=== PATIENT | male | born 1980 | race Caucasian/White ===

== ENCOUNTER 2017-04-20 07:37 | Emergency (ER) | payer OTHER | END 2017-04-20 09:38 | disposition home or self-care (01) | LOC: ERS 07:37 | DX: H53.8 Other visual disturbances (principal) | CPT/HCPCS: 99283 ==

== ENCOUNTER 2017-05-01 14:32 | Outpatient (CLI) | payer OTHER ==
--- NOTE | 2017-05-01 15:56 | MRI ---
MAGNETIC RESONANCE ANGIOGRAM MRA OF HEAD NONCONTRAST: DATE: 05/01/17. HISTORY: A 36-year-old male with sudden onset of dilated right pupil and headaches. H57.02, unequal pupils (a nisocoria). Rule out PCOM aneurysm. TECHNIQUE: A 3D [id number] MRA performed in multiple axial slabs through the [place]. Source image s and 3D MIP reconstructions evaluated. FINDINGS: Anterior and posterior circulation arteries are of normal caliber. There is no evidence of aneurysm 3 mm or larger. More specifically, there is no evidence of a posterior communicating artery aneurysm . Bilateral posterior communicating arteries are visualized. There is also an anterior communicatin g artery. IMPRESSION: 1. No intracranial aneurysm identified. 2. Complete [place]. 3. Normal MRA. POS: OFF
--- NOTE | 2017-05-01 17:06 | MRI ---
MRI BRAIN WITH AND WITHOUT CONTRAST: DATE: 05-01-17 HISTORY: 36-year-old male with sudden onset of right anisocoria (unequal pupils H57.02), and headache R51. TECHNIQUE: Multiple sequences obtained in axial, sagittal, and coronal planes; pre and post IV injection of gado linium-based contrast agent: MultiHance Thin slice, volume acquisition T1 MP-RAGE axials obtained, with coronal and sagittal reconstructions performed from that. FINDINGS: The ventricles are normal in size and configuration. There is no major intraaxial signal abnormality , restricted diffusion, abnormal intraaxial enhancement, mass, midline shift or any other mass effect , recent intraaxial hemorrhage, or extraaxial fluid collection. The previously described periventricular cyst very close to the anterior aspect of the trigone of the right lateral ventricle, is significantly smaller than it was on 07-18-11, and is either stable or sl ightly smaller than on the most recent MRI of 06-23-14. It is currently approximately 1 x 0.3 x 0.5 cm. It does not enhance. There is no evidence of aneurysm in the [place], more specifically involving the right PCom artery. There is no abnormal enhancement or mass at the orbital apices, cavernous sinuses, or in the cisterns. IMPRESSION: 1. No evidence of aneurysm of the right posterior communicating artery. 2. Very small, benign right periventricular cyst, stable or minimally smaller than on 06-23-2014. 3. Otherwise normal. jn POS: OFF
== END 2017-05-01 14:33 | disposition home or self-care (01) ==
LOC: SCSMRI 14:32
PROVIDERS: ATTEND Surgery
DX: H57.02 Anisocoria (principal); R51 Headache; G93.0 Cerebral cysts
CPT/HCPCS: 70544; 70553

== ENCOUNTER 2020-04-10 11:28 | Outpatient (CLI) | payer BC ==
[2020-04-10] MEDS ORDERED: Furosemide 40 MG/4 ML VIAL ONE (12:26)
--- NOTE | 2020-04-10 15:10 | NM ---
EXAM: Nuclear medicine renal scan with Lasix COMPARISON: None HISTORY: Hydronephrosis secondary to a crossing vessel stricture TECHNIQUE: A nuclear medicine renal exam was administered after administration of 8.8 mCi of techneti um 99m MAG3. 40 mg of Lasix was given 15 minutes prior to injection of the MAG3. FINDINGS: Time to peak is 1.8 minutes on the left and 2.0 minutes on the right. Time of one half max is 6.0 minutes on the left and 12.3 minutes on the right. The renal curves are both normal in appearance without evidence of obstruction. The angiographic phase shows a symmetric appearance of the kidneys. There is symmetric excretion by the kidneys. Split renal function is 47% on the left and 53% on the right. IMPRESSION: Slight delay of excretion of the right kidney compared to the left. However, this is not greater than 20 minutes and obstruction is not likely present.
== END 2020-04-10 11:29 | disposition home or self-care (01) ==
LOC: NM 11:28
PROVIDERS: ATTEND Urology
DX: N13.5 Crossing vessel and stricture of ureter without hydronephrosis (principal); R94.8 Abnormal results of function studies of other organs and systems
CPT/HCPCS: 78708; A4641; A9562; J1940

== ENCOUNTER 2022-07-25 13:36 | Outpatient (CLI) | payer OTHER | END 2022-07-25 13:37 | disposition home or self-care (01) | LOC: CT 13:36 | PROVIDERS: ATTEND Urology | DX: N13.30 Unspecified hydronephrosis (principal); N20.0 Calculus of kidney; N28.89 Other specified disorders of kidney and ureter | CPT/HCPCS: 74176 ==

== ENCOUNTER 2022-07-29 12:47 | Outpatient (CLI) | payer OTHER ==
[2022-07-29 13:40] LABS: Bilirubin Neg (Negative); Blood, Urine Negative (Negative); Clarity Clear (Clear); Glucose, Urine (Dipstick) Normal (Negative); Ketone, Urine Negative (Negative); Leukocyte Negative (Negative); Nitrite Negative (Negative); Protein, Urine (Dipstick) 15 mg/dl (Neg-Trace); Urobilinogen Normal mg/dL (Less than 2)
[2022-07-29 13:43] LABS: Hemoglobin 14.6 g/dL (13.5-17.5); Mean Corpuscular HGB CONC 33.8 g/dL (32.0-36.0); Mean Corpuscular Hemoglobin 30.5 pg (27.0-33.0); Mean Corpuscular Volume 90.4 fl (81.2-95.1); Platelet Count 230 10x3/uL (150-450); RBC Distribution Width 12.1 % (11.5-14.5); Red Blood Cell (RBC) Count 4.78 10x6/uL (4.32-5.72); White Blood Cell (WBC) Count 6.9 10x3/uL (3.5-10.5)
[2022-07-29 14:05] LABS: Anion Gap 12 mmol/L (10-20); BUN (Urea Nitrogen) 15 mg/dL (8.9-20.6); Calc. Creatinine Clearance 0 mL/min (70-130); Carbon Dioxide 25 mmol/L (22-29); Chloride 109 mmol/L (98-107); Estimated GFR 111; Glucose 92 mg/dL (70-105); Potassium 4.3 mmol/L (3.5-5.1); Sodium 142 mmol/L (136-145)
[2022-07-29 14:07] LABS: Bacteria/HPF None Seen HPF (None Seen); RBC/HPF 0-3 HPF (0-3); Squamous Epithelial None Seen HPF (0-3); WBC/HPF 0-3 HPF (0-3)
[2022-07-29 14:09] LABS: INR-International Normal Ratio 0.9; PTT 25.4 sec (22.0-33.0); Prothrombin Time 10.2 sec (9.5-12.1)
== END 2022-07-29 12:48 | disposition home or self-care (01) ==
LOC: LABBT 12:47
PROVIDERS: ATTEND Urology
DX: Z01.818 Encounter for other preprocedural examination (principal); N20.0 Calculus of kidney; N13.5 Crossing vessel and stricture of ureter without hydronephrosis
CPT/HCPCS: 80048; 81001; 85027; 85610; 85730; 87086; 93005; 93010